=== PATIENT | female | born 1960 | race Caucasian/White ===

== ENCOUNTER 2016-08-24 11:42 | Outpatient (CLI) | payer MEDICARE ==
[~2016-08-24] VITALS: Ht 162.6 cm; Wt 119.6 kg
--- NOTE | ~2016-08-24 | HEMODYNAMI ---
PATIENT:SUKHWINDER PERSAUD MEDICAL RECORD: [id number] : 60 LOCATION:[facility] ADMISSION DATE: 08/24/16 Generatedon:08/24/201613:47 Patient name: SUKHWINDER PERSAUD Patient #: [id number] SSN: : 1960 Date of study: 08/24/2016 Page: Of Hemodynamic Procedure Report Patient Data Patient Demographics Procedure consent was obtained First Name: SUKHWINDER Gender: Female Last Name: CORI : 1960 Patient #: [id number] Age: 56 year(s) Race: Unknown Additional ID: [id number] Contact details Address: [address] [place] [address] lane State: [place] City: [place] Zip code: [address] Past Medical History Allergies Allergen Reaction Date Comments Reported Morphine 08/24/2016 Admission Admission Data Admission Date: 08/24/2016 Admission Time: 11:42 Admit Source: Other Lab Results Lab Result Date: 08/24/2016 Lab Result Time: 0:00 Biochemistry Name Units Result Min Max BUN mg/dl 19 --(----)*- 7 18 Creatinine mg/dl 1 --(--*-)-- 0.6 1.3 CBC Name Units Result Min Max Hemoglobin g/dl 12.6 -*(----)-- 13.5 17.5 Procedure Procedure Types Cath Procedure Diagnostic Procedure LHC C w/Coronaries Procedure Description Procedure Date Procedure Date: 08/24/2016 Procedure Start Time: 13:38 Procedure End Time: 13:46 Procedure Staff Name Function Juve Holley MD Performing Physician Krish Garsia RN Nurse Gigi Mendes RT Monitor Xavier Aguilar RT Scrub Procedure Data Cath Procedure Fluoroscopy Diagnostic fluoroscopy Total fluoroscopy Time: 1.9 time: 1.9 min min Diagnostic fluoroscopy Total fluoroscopy dose: 659 dose: 659 mGy mGy Contrast Material Contrast Material Type Amount (ml) Isovue 300 56 Entry Location Entry Primary Successful Side Size Upsize Upsize Entry Closure Clark ccessful Closure Location (Fr) 1 (Fr) 2 (Fr) Remarks Device Remarks Radial Right 6 Fr Mechanical artery Short Compression Diagnostic catheters Device Type Used For End Catheter Placement Terumo 5Fr Andrews 110cm LV Angiography catheter Procedure Complications No complications Procedure Medications Medication Administration Route Dosage Oxygen NC 2 l/min Heparin Flush Bag added to field 2 bags (1000units/500ml NS) Lidocaine 2% added to field 20 Benadryl I.V. 50 mg Radial Cocktail added to field 1 syringe (Verapomil 2mg/Nitro 400mcg/Heparin 1500units) Fentanyl I.V. 100 mcg Versed I.V. 1 mg Fentanyl I.V. 50 mcg Versed I.V. 1 mg Fentanyl I.V. 25 mcg Versed I.V. 1 mg Versed I.V. 0.5 mg Hemodynamics Rest HGB: 12.6 (g/dl) Heart Rate: 87 (bpm) Pressure Samples Time Site Value (mmHg) Purpose Heart Use Rate(bpm) 13:38 LV 155/7,11 EDP 95 13:38 AO 139/87(110) Pullback 92 Gradients Valve Time Site Site 2 Mean SEP/DFP Peak To Heart Use 1 (mmHg) (sec/min) Peak Rate (mmHg) (bpm) Aortic 13:38 LV AO 92 139/87(110) Snapshots Pre Cath Intra NCS Post Cath Vital Signs Time Heart Resp SPO2 NIBP (mmHg) Rhythm Pain Sedation Rate (ipm) (%) Status Level (bpm) 13:28:00 87 10 100 187/84(131) NSR 0 (11) 10(A) , No pain 13:32:45 90 19 98 169/79(125) NSR 0 (11) 10(A) , No pain 13:37:34 95 22 97 137/55(110) NSR 0 (11) 9(A) , No pain 13:42:08 84 16 98 125/71(106) NSR 0 (11) 9(A) , No pain 13:47:26 89 16 97 156/81(119) NSR 0 (11) 10(A) , No pain Medications Time Medication Route Dose Verified Delivered Reason Notes Effectiveness by by 13:25:45 Oxygen NC 2 l/min Emiliana Emiliana used for ENDY Clarke RN procedure 13:25:55 Heparin Flush added 2 bags Emiliana Emiliana used for Bag to ENDY Clarke RN procedure (1000units/500ml field NS) 13:26:02 Lidocaine 2% added 20ml Emiliana Emiliana used for to vial ENDY Clarke RN procedure field 13:26:08 Benadryl I.V. 50 mg Emiliana Emiliana Per ENDY Clarke RN physician 13:26:17 Radial Cocktail added 1 Emiliana Emiliana used for (Verapomil to syringe ENDY Clarke RN procedure 2mg/Nitro field 400mcg/Heparin 1500units) 13:37:58 Fentanyl I.V. 100 mcg Emiliana Emiliana for ENDY Clarke RN sedation 13:38:03 Versed I.V. 1 mg Emiliana Emiliana for ENDY Clarke RN sedation 13:39:10 Fentanyl I.V. 50 mcg Emiliana Emiliana for ENDY Clarke RN sedation 13:39:14 Versed I.V. 1 mg Emiliana Emiliana for ENDY Clarke RN sedation 13:42:07 Fentanyl I.V. 25 mcg Emiliana Emiliana for ENDY Clarke RN sedation 13:42:12 Versed I.V. 1 mg Emiliana Emiliana for ENDY Clarke RN sedation 13:42:30 Versed I.V. 0.5 mg Emiliana Emiliana for ENDY Clarke RN sedation Procedure Log Time Note 12:49:17 Admit Source: Other 12:49:52 Diagnostic Cath status Elective 13:01:09 Xavier Aguilar RT(R) sent for patient. Start room use. 13:25:45 Oxygen 2 l/min NC was given by Emiliana Clarke RN; used for procedure; 13:25:55 Heparin Flush Bag (1000units/500ml NS) 2 bags added to field was given by Emiliana Clarke RN; used for procedure; 13:26:02 Lidocaine 2% 20ml vial added to field was given by Emiliana Clarke RN; used for procedure; 13:26:08 Benadryl 50 mg I.V. was given by Emiliana Clarke RN; Per physician; 13:26:17 Radial Cocktail (Verapomil 2mg/Nitro 400mcg/Heparin 1500units) 1 syringe added to field was given by Emiliana Clarke RN; used for procedure; 13:26:20 Vital chart was started 13:29:19 Time tracking: Regular hours 13:29:23 Plan of Care:Hemodynamics will remain stable., Cardiac rhythm will remain stable., Comfort level will be maintained., Respiratory function will remain adequate., Patient/ family verbilizes understanding of procedure., Procedure tolerated without complication., Recovers from procedure without complications.. 13:29:28 Patient received from Outpatients to [facility] Alert and oriented. Tansferred to table in Supine position. 13:29:29 Warm blankets applied, and cory hugger turned on for patient comfort. 13:29:29 Correct patient and procedure confirmed by team. 13:29:31 Signed procedure consent form obtained from patient. 13:29:33 Baseline sample Acquired. 13:29:37 Rhythm: sinus tachycardia 13:29:38 Full Disclosure recording started 13:29:48 H&P Date Dictated: 08/21/2016 Within 30 days and on chart., H&P Addendum completed by physician on day of procedure. (MUST COMPLETE FOR ALL OUTPATIENTS). 13:29:49 Pre-procedure instructions explained to patient. 13:29:49 Pre-op teaching completed and patient verbalized understanding. 13:29:50 Family in waiting room. 13:29:53 Patient NPO since Midnight. 13:30:03 Patient allergic to Morphine 13:30:07 Is the patient allergic to Iodine/contrast media? No. 13:30:18 Is patient on blood thinner?Yes 13:30:23 ACC The patient was administered the following blood thiners within the last 24 hours: Xarelto 13:30:24 Patient diabetic? No. 13:30:26 ----Pre-sedation anethsthesia assessment.---- 13:30:28 Previous problem with sedation/anesthesia? No ? 13:30:30 Snore? Yes 13:30:32 Sleep apnea? No 13:30:34 Deviated septum? No 13:30:37 Opens mouth fully? Yes 13:30:41 Sticks out tongue? Yes 13:30:44 Airway obstruction? No ? 13:30:47 Dentures? No ? 13:36:53 Pre procedure: right dorsailis pedis pulse 1+ Palpable, but thready & weak; easily obliterated 13:36:57 Modified Harsha's test Ulnar < 7 seconds 13:37:00 Patient pain scale 0/10 ?. 13:37:14 IV patent on arrival in left antecubital with 0.9% NaCl at 10ml/hr. 13:37:22 Lab results completed and on chart. 13:37:25 Right Radial & Right Groin area was prepped with chlora-prep and draped in sterile fashion 13:37:26 Alarms reviewed by R. N. 13:37:26 Sharps counted by scrub and verified by R.N. 13:37:27 --------ALL STOP TIME OUT------ 13:37:27 Final Timeout: patient, procedure, and site verified with staff and physician. All members of the team are in agreement. 13:37:28 Right Radial & Right Groin site verified by team. 13:37:31 Physical assessment completed. ASA score P 2 - A patient with mild systemic disease as per Juve Holley MD. 13:37:35 Sedation plan: IV Moderate Sedation Versed, Fentanyl 13:37:42 Use device set Radial Dx 13:37:43 Acist Syringe opened to sterile field. 13:37:44 Cardinal Cath Pack opened to sterile field. 13:37:44 Bag Decanter opened to sterile field. 13:37:45 Terumo 6Fr Slender Glidesheath opened to sterile field. 13:37:45 St Cameron 260cm J .035 wire opened to sterile field. 13:37:45 Acist Hand Control opened to sterile field. 13:37:46 Acist Manifold opened to sterile field. 13:37:47 Tegaderm 4 x 4 opened to sterile field. 13:37:58 Fentanyl 100 mcg I.V. was given by Emiliana Clarke RN; for sedation; 13:38:02 Procedure started. 13:38:03 Versed 1 mg I.V. was given by Emiliana Clarke RN; for sedation; 13:38:11 Local anesthetic to right radial artery with Lidocaine 2% by Juve Holley MD.INITIAL ACCESS ONLY 13:38:18 A 6 Fr Short sheath was inserted into the Right Radial artery 13:38:29 A Terumo 5Fr Andrews 110cm catheter was advanced over the wire and used for LV Angiography. 13:38:40 LV angiography performed. 13:38:41 LV gram done using MAHARAJ 13:38:45 EF : 40 % 13:39:10 Fentanyl 50 mcg I.V. was given by Emiliana Clarke RN; for sedation; 13:39:14 Versed 1 mg I.V. was given by Emiliana Clarke RN; for sedation; 13:39:18 Lab Result : BUN 19 mg/dl 13:39:18 Lab Result : Creatinine 1 mg/dl 13:39:18 Lab Result : Hemoglobin 12.6 g/dl 13:40:07 RCA angiography performed. 13:40:19 LCA angiography performed. 13:40:59 Catheter removed. 13:41:42 Sheath removed intact; hemostasis achieved with Mechanical Compression to the Right Radial artery. 13:41:43 Procedure ended.(Physican Out) 13:41:55 Fluoroscopy time 01.90 minutes. 13:42:00 Fluoroscopy dose: 659 mGy 13:42:00 Flurop Dose total: 659 13:42:07 Fentanyl 25 mcg I.V. was given by Emiliana Clarke RN; for sedation; 13:42:12 Versed 1 mg I.V. was given by Emiliana Clarke RN; for sedation; 13:42:24 Contrast amount:Isovue 300 56ml. 13:42:30 Versed 0.5 mg I.V. was given by Emiliana Clarke RN; for sedation; 13:45:20 Sharps counted by scrub and verified by R.N. 13:45:58 TR band inflated with 10cc of air. 13:46:03 Post right radial artery:stable 13:46:07 Post procedure rhythm: sinus rhythm 13:46:09 Post procedure instruction explained to patient.Patient verbalizes understanding. 13:46:10 Procedure and supply charges have been captured, reviewed, submitted and are correct. 13:46:15 Procedure Complication : No complications 13:46:17 Vital chart was stopped 13:46:17 See physician's report for complete and final results. 13:46:20 Report given to Post Procedure Room. 13:46:23 Patient transfered to Post Procedure Room with Stretcher. 13:46:25 Procedure ended. 13:46:25 Full Disclosure recording stopped 13:46:37 End room use (Document Last) Device Usage Item Name Manufacture Quantity Catalog Hospital Part Current Minimal Lot# / Number Charge Number Stock Stock Serial# Code Acist Acist 1 09606 [id number] 262396 660227 20 Syringe [employer] Cardinal Cardinal 1 [id number] [id number] 29806 838348 5 Cath Pack Health Bag Microtek 1 2002S [id number] 95130 435923 5 Decanter [employer] Terumo 6Fr Terumo 1 [id number] 377124 757447 922126 [address] St Cameron 1 276121 711656 290183 813602 30 260cm J .035 wire Acist Hand Acist 1 29539 186579 913808 395944 5 Control [employer] Inc Acist Acist 1 63949 629446 187974 209445 5 Manifold [employer] Inc Tegaderm 4 3M 1 [id number] 970895 298457 565170 5 x 4 Terumo 5Fr Terumo 1 15-6232 731163 501782 839614 5 Andrews 110cm catheter Signature Audit [place] Stage Time Signature Unsigned Intra-Procedure 08/24/2016 Gigi Mendes 1:47:44 PM RT(R) Signatures Monitor : Gigi Mendes RT Signature : Date : Time : [address] [address]
[2016-08-24] MEDS ORDERED: METOPROLOL TAR100 M1 PO (12:30)
[2016-08-24] MEDS ORDERED: LISINOPRIL10 MG PO (12:31)
[2016-08-24] MEDS ORDERED: PRAVACHOL40 MG PO (12:31)
[2016-08-24 12:32] VITALS: BP 163/77; Ht 162.6 cm; Wt 119.6 kg
[2016-08-24] MEDS ORDERED: XARELTO20 MG PO (12:32)
[2016-08-24 12:41] LABS: BASOPHILS 0.5 % (0.0-2.0); HEMATOCRIT 38.5 % (36.0-48.0); HEMOGLOBIN 12.6 g/dL (12-16); IMMATURE GRANULOCYTES 0.8 % (0-5); LYMPHOCYTES 39.3 % (15-50); MCH 28.8 pg (26.0-34.0); MCHC 32.7 g/dL (31.0-37.0); MCV 88.1 fL (80.0-100.0); MEAN PLATELET VOLUME 10.3 fL (7.4-10.4); MONOCYTES 9.2 % (2-11); NEUTROPHILS 48.2 % (40-80); PLATELET COUNT 215 10x3/uL (130-400); RBC 4.37 10x6/uL (4.00-5.40); RDW 13.6 % (11.5-14.5); WBC 6.5 10x3/uL (4.8-10.8)
[2016-08-24 12:55] LABS: ANION GAP 11.7 mmol/L (8-16); CALCIUM 9.1 mg/dL (8.5-10.1); CARBON DIOXIDE 28.3 mmol/L (21.0-32.0)
--- NOTE | 2016-08-24 14:00 | NUR ---
1400- PT RECEIVED FROM PROFESSOR OF THEOLOGY. CLEAN CATHETERIZATION VIA RIGHT WRIST. TR BAND INFLATED WITH 12CC AIR. VSS. NO C/O OF N/V, FINGER TRAY ORDERED, DIET COKE OFFERED. WILL MONITOR.
--- NOTE | 2016-08-24 15:15 | NUR ---
1515- REPORT HANDOFF TO MARY RIZO RN.
--- NOTE | 2016-08-24 16:28 | NUR ---
1445- TOLERATED SANDWICH, CHIPS, AND SODA. VITAL SIGNS CONTINUE TO BE STABLE. NO C/O N/V/PAIN. RIGHT WRIST WITH TR BAND STILL INFLATED, C/D/I. INSTRUCTED TO USE RIGHT UPPER EXTREMITY SPARINGLY AT THIS TIME. WILL CONTINUE TO MONITOR.
--- NOTE | 2016-08-24 19:20 | NUR ---
1515 RT WRIST TRBAND ON 2CC OF AIR REMOVED TINY AMT BLEEDING NOTED PUT AIR BACK. PATIENT MOVING RIGHT ARM AND WRIST AND TOLD NOT TO DO SO, STILL MOVING EVEN AFTER INSTRUCTED NOT TO DO MOVE WRIST.
--- NOTE | 2016-08-24 19:25 | NUR ---
1530 3C OF AIR REMOVED NO BLEEDING RT RADIAL PULSE PRESENT.
--- NOTE | 2016-08-24 19:25 | NUR ---
1545 3C OF AIR REMOVED FROM TRBAND NO BLEEDING RADIAL PULSE PRESENT.
--- NOTE | 2016-08-24 19:26 | NUR ---
1600 2CC OF AIR REMOVED FROM TRBAND NO BLEEDING RADIAL PULSE PRESENT.
--- NOTE | 2016-08-24 19:27 | NUR ---
1615 2CC OF AIR REMOVED FROM TRBAND NO BLEEDING RADIALPULSE PRESENT.
--- NOTE | 2016-08-24 19:29 | NUR ---
1642 IV DCD CATHETER INTACT. DISCHARGE INSTRUCTIONS GIVEN. VERBALLY UNDERSTANDS. TO HOME VIA W/C WITH FAMILY [id number].
--- NOTE | 2016-08-25 13:36 | OP ---
PATIENT NAME: SUKHWINDER PERSAUD MEDICAL RECORD: [id number] :60 LOCATION:[facility] ADMISSION DATE: SURGEON: ANUJ LEMONS MD DATE OF OPERATION: 08/24/2016 PROCEDURE: Left heart catheterization, selective coronary angiography, right radial approach. CATHETERS: A 5-Arabic sheath, a Jose De Jesus catheter. The procedure was tolerated. The patient returned to the woodson. Sheath was removed. TR band was placed. FINDINGS: Left ventriculography in 30-degree MAHARAJ view shows global hypokinesis. Overall, function is mildly reduced at 40% to 45%. CORONARY ANATOMY: Left main: Left main is free of disease. LAD: LAD is free of disease in the diagonal system. CIRCUMFLEX: Circumflex is free of disease the marginal system. RIGHT CORONARY ARTERY: Huge dominant artery, free of disease. IMPRESSION: Nonischemic cardiomyopathy, continue on beta-blockade and CELINA inhibitor. Consider addition of Aldactone versus changing to Entresto in the near future. TRANSINT:[id number] Voice Confirmation ID: [id number] DOCUMENT ID: [id number] ANUJ LEMONS MD at 1336 CC: [id number] DICTATION DATE: 08/24/16 1347 RN RESOURCE NURSE: 08/24/16 1636 DEP CLI 08/24/16 [id number] [place] [address]
== END 2016-08-24 16:50 | disposition home or self-care (01) ==
LOC: D.CATH 11:42
PROVIDERS: Internal Medicine Interventional Cardiology
DX: I42.9 Cardiomyopathy, unspecified (principal)

== ENCOUNTER → 2018-10-09 09:04 | Outpatient (CLI) | payer MEDICARE ==
[2016-08-24 12:32] VITALS: BMI 45.3
[~2018-10-09 09:04] MED LIST: LISINOPRIL10 MG PO; METOPROLOL TAR100 M1 PO; PRAVACHOL40 MG PO; XARELTO20 MG PO
--- NOTE | 2018-10-13 10:39 | EC ---
PATIENT:SUKHWINDER PERSAUD DATE OF SERVICE: 10/09/18 SEX: F MEDICAL RECORD: [id number] DATE OF : 60 LOCATION:[facility], [facility]IN [facility] AGE OF PATIENT: 58 ADMISSION DATE: 10/09/18 REFERRING PHYSICIAN: INTERPRETING PHYSICIAN: ANUJ LEMONS MD ECHOCARDIOGRAM REPORT ECHO CHARGES 4 ECHO COMPLETE Date: 10/09/18 CLINICAL DIAGNOSIS: CARDIOMYOPATHY ECHOCARDIOGRAPHIC MEASUREMENTS (adult normal given) AC root (d.<3.7cm) 4.1 cm LV Septum d (<1.2 cm> 1.7 cm Valve Excursion 2.0 cm LV Septum (systole) 1.5 cm Left Atria (s.<4.0cm> 4.2 cm LVPW d(<1.2cm) 1.6 cm RV (d.<2.3cm) 4.0 cm LVPW (sytole) cm LV diastole(<5.6CM) 6.3 cm MV E-F(>70mm/sec) cm LV systole 5.1 cm LVOT Diameter 1.8 cm MV exc.(>10mm) cm Est.ejection fraction (50-75%) % DOPPLER: LVIT cm/sec A 97.0 cm/sec E 73.0 cm/sec LA cm/sec RVSP 17 mmHg LVOT 76 cm/sec AOP1/2T m/s Asc. Ao 137 cm/sec RVOT 102 cm/sec RA cm/sec PA 117 cm/sec AV Gradient Peak 7.53 mmHg AV Mean 4.02 mmHg AV Area 1.2 cm MV Gradient Peak 6.30 mmHg MV Mean 2.97 mmHg MV Area cm COMMENTS: Release Engineer: 2 JAMIE CHIANG Senior Integration Developer: 3 Dr. Holley TAPE# PACS Pericardial Effusion N DATE OF SERVICE: Adequate 2-D, color-flow and spectral Doppler, and M-mode. LVH is present. LV internal dimensions are normal. Wall motion is normal. EF greater than 55%. Aortic valve is tricuspid. No evidence of stenosis by Doppler interrogation. Left atrium is dilated at 4.2 cm. Mitral valve shows no prolapse. Mild MR. Right-sided chambers are grossly normal. Mild TR. TRANSINT:[id number] Voice Confirmation ID: [id number] DOCUMENT ID: [id number] ECHOCARDIOGRAM REPORT [id number] PERSAUD,SUKHWINDER ANUJ IRVING MD at 1039 CC: [id number] DICTATION DATE: 10/10/18 1303 STEAMBOAT INSPECTOR: 10/10/18 1408 DEP CLI 10/09/18 [address] [place] [address]
== END | disposition home or self-care (01) ==
LOC: D.HCCARDIO 09:04
PROVIDERS: ATTEND Internal Medicine Interventional Cardiology
DX: I42.9 Cardiomyopathy, unspecified (principal)